=== PATIENT | male | born 1985 | race Caucasian/White ===

== ENCOUNTER → 2018-11-09 | Outpatient (CLI) | payer OTHER | END | disposition home or self-care (01) | LOC: LAB EV 13:08 → LAB SHORT 13:08 | DX: K12.0 Recurrent oral aphthae (principal) | CPT/HCPCS: 87529 ==

== ENCOUNTER 2020-11-18 18:52 | Emergency (ER) | payer OTHER ==
[~2020-11-18] VITALS: Ht 177.8 cm; Wt 73.0 kg
== END 2020-11-18 20:18 | disposition home or self-care (01) ==
LOC: ER 18:52
DX: S43.101A Unspecified dislocation of right acromioclavicular joint, initial encounter (principal); V86.99XA Unspecified occupant of other special all-terrain or other off-road motor vehicle injured in nontraffic accident, initial encounter
CPT/HCPCS: 29105; 73030; 99283-25